=== PATIENT | female | born 1960 | race Caucasian/White ===

== ENCOUNTER → 2018-06-08 | Outpatient (CLI) | payer OTHER | LOC: M.LAB 07:58 | DX: M81.0 Age-related osteoporosis without current pathological fracture (principal) ==

== ENCOUNTER → 2018-08-24 | Outpatient (CLI) | payer OTHER ==
[2018-08-24 08:23] LABS: ABSOLUTE BASOPHILS 0.1 thou/uL (0.0-0.2); ABSOLUTE EOSINOPHILS 0.1 thou/uL (0.0-0.7); ABSOLUTE MONOCYTES 0.3 thou/uL (0.0-1.2); BASOPHILS 1.5 %; EOSINOPHILS 2.4 %; HEMATOCRIT 39.7 % (37.0-47.0); HEMOGLOBIN 12.9 gm/dL (12.0-15.0); MCH 29.1 pg (26.0-34.0); MCHC 32.5 g/dL (28.0-37.0); MCV 89.3 fL (80.0-100.0); MONOCYTES 7.3 %; MPV 8.3 fl. (7.2-11.1); NUCLEATED RBCS 0 /100WBC; PLATELET COUNT* 262 thou/uL (150-400); POLYS 65.8 %; RBC 4.45 mil/uL (4.20-5.00); WBC 4.6 thou/uL (4.0-11.0)
[2018-08-24 08:45] LABS: ALBUMIN 3.7 g/dL (3.4-5.0); ALKALINE PHOSPHATASE 88 U/L (46-116); ANION GAP 12 mmol/L (7-16); BUN 12 mg/dL (7-18); CALCIUM 8.7 mg/dL (8.5-10.1); CHLORIDE 104 mmol/L (98-107); CHOLESTEROL 322 mg/dL (<200); CO2 24 mmol/L (21-32); CREATININE 0.9 mg/dL (0.6-1.3); GLUCOSE 87 mg/dL (70-99); HDL CHOLESTEROL 66 mg/dL (>40); LDL CHOLESTEROL 230 mg/dL (<100); POTASSIUM 3.8 mmol/L (3.5-5.1); SGOT 24 U/L (15-37); SGPT 39 U/L (30-65); SODIUM 140 mmol/L (136-145); TC:HDL 4.9 Ratio (Not establshd); TOTAL BILIRUBIN 0.2 mg/dL (<0.1-1.0); TOTAL PROTEIN 7.1 g/dL (6.4-8.2); TRIGLYCERIDE 130 mg/dL (<150); VLDL 26 mg/dL (<40)
[2018-08-24 08:47] LABS: SERUM ASSESSMENT Clear
== END ==
LOC: M.LAB 08:08
PROVIDERS: Internal Medicine
DX: M79.7 Fibromyalgia (principal); E78.00 Pure hypercholesterolemia, unspecified; E03.9 Hypothyroidism, unspecified; E83.42 Hypomagnesemia

== ENCOUNTER → 2019-01-17 | Outpatient (CLI) | payer OTHER | LOC: M.RAD 09:45 | DX: S22.31XA Fracture of one rib, right side, initial encounter for closed fracture (principal); Z88.8 Allergy status to other drugs, medicaments and biological substances; W19.XXXA Unspecified fall, initial encounter; Y93.89 Activity, other specified; Y92.89 Other specified places as the place of occurrence of the external cause; Y99.8 Other external cause status ==

== ENCOUNTER → 2019-01-27 | Outpatient (CLI) | payer OTHER | LOC: M.RAD 12:46 | DX: S22.31XD Fracture of one rib, right side, subsequent encounter for fracture with routine healing (principal); X58.XXXD Exposure to other specified factors, subsequent encounter ==

== ENCOUNTER → 2019-01-30 | Outpatient (CLI) | payer OTHER | LOC: M.RAD 12:42 | DX: M25.561 Pain in right knee (principal) ==

== ENCOUNTER 2019-02-06 18:00 | Emergency (ER) | payer OTHER ==
[~2019-02-06] VITALS: Ht 154.9 cm; Wt 77.1 kg
[2019-02-06] MEDS ORDERED: TOPAMAX 100 MG100 MG PO (18:08)
[2019-02-06] MEDS ORDERED: SYNTHROID100 MC1 PO (18:09)
[2019-02-06] MEDS ORDERED: SERTRALINE HCL50 MG PO (18:09)
[2019-02-06] MEDS ORDERED: XANAX 0.25 MG0.25 MG PO (18:09)
[2019-02-06] MEDS ORDERED: PRILOSEC 10MG C10 MG PO (18:10)
[2019-02-06] MEDS ORDERED: FLEXERIL PO (18:10)
[2019-02-06 18:27] LABS: HEMATOCRIT 38.3 % (37.0-47.0); HEMOGLOBIN 12.7 gm/dL (12.0-15.0); MCH 28.6 pg (26.0-34.0); MCHC 33.2 g/dL (28.0-37.0); MCV 86.3 fL (80.0-100.0); MPV 8.5 fl. (7.2-11.1); NUCLEATED RBCS 0 /100WBC; PLATELET COUNT* 312 thou/uL (150-400); RBC 4.43 mil/uL (4.20-5.00); RDW-CV 14.9 % (10.5-14.5); WBC 6.9 thou/uL (4.0-11.0)
[2019-02-06 18:39] LABS: APTT 31.7 Seconds (25.0-31.3); PROTIME 9.8 Seconds (9.20-11.50)
[2019-02-06 18:46] LABS: ANION GAP 13 mmol/L (7-16); BUN 14 mg/dL (7-18); CALCIUM 9.5 mg/dL (8.5-10.1); CHLORIDE 103 mmol/L (98-107); CO2 26 mmol/L (21-32); CREATININE 1.1 mg/dL (0.6-1.3); GLUCOSE 82 mg/dL (70-99); POTASSIUM 3.4 mmol/L (3.5-5.1); SODIUM 142 mmol/L (136-145); TROPONIN-I LEVEL <0.06 ng/mL (<0.06)
[2019-02-06 18:49] LABS: ALKALINE PHOSPHATASE 113 U/L (46-116); CK-MB MASS < 0.5 ng/mL (<0.5-3.6); LIPASE 134 U/L (73-393); MAGNESIUM 2.2 mg/dL (1.8-2.4); NT-PRO BRAIN NAT PEPTIDE 37 pg/mL (<300); SGOT 19 U/L (15-37); SGPT 31 U/L (30-65); TOTAL BILIRUBIN 0.1 mg/dL (<0.1-1.0); TOTAL PROTEIN 8.6 g/dL (6.4-8.2)
[2019-02-06 19:00] LABS: ABSOLUTE EOSINOPHILS 0.3 thou/uL (0.0-0.7); ABSOLUTE LYMPHOCYTES 2.5 thou/uL (0.8-5.3); ABSOLUTE MONOCYTES 0.2 thou/uL (0.0-1.2); ABSOLUTE NEUTROPHILS 3.9 thou/uL (1.6-8.1)
[2019-02-06 19:01] LABS: PLATELET ESTIMATE ADEQUATE
[2019-02-06 19:02] LABS: CLUMPED PLTS OCCASIONAL
[2019-02-06] MEDS ORDERED: LYRICA 50 MG50 MG PO (21:05)
[2019-02-06 21:23] VITALS: BP 112/54
--- NOTE | 2019-02-07 10:41 | EKG ---
[place] [address] ELECTROCARDIOGRAM REPORT Name: JOCELINE YOUNG Room: [facility]#: [id number] Admission: 02/06/19 Attend Phys: Discharge: 02/06/19 Date of : 56 Report #: [id number] THIS REPORT FOR: //name// [facility] ED Test Date: 2019-02-06 Test Time: 18:06:12 Pat Name: JOCELINE HANNAH Department: Room: Gender: F Supervisor [employer] Department: [place] : 1960 Requested By: Edgardo Mcdonald Order Number: [id number] MD: Erick Mcdonald Measurements Intervals [place] Rate: 95 P: 49 [place]: 146 QRS: 12 QRSD: 97 T: 0 QT: 344 QTc: 433 Interpretive Statements Sinus rhythm Baseline wander in lead(s) V1,V2 No previous ECG available for comparison Electronically Signed On 02-07-2019 10:40:53 CDT by Erick Mcdonald [email or web address] <ELECTRONICALLY SIGNED> By: Erick Mcdonald MD, [facility] 02/07/19 1040 05 05 Erick Mcdonald MD, FAC /EPI
== END 2019-02-06 21:24 | disposition still patient (30) ==
LOC: M.ERS 18:00
PROVIDERS: Family Medicine
DX: R07.89 Other chest pain (principal); Z90.49 Acquired absence of other specified parts of digestive tract; Z90.710 Acquired absence of both cervix and uterus; Z88.8 Allergy status to other drugs, medicaments and biological substances

== ENCOUNTER → 2019-05-22 | Outpatient (CLI) | payer OTHER ==
[~2019-05-22] MED LIST: FLEXERIL PO; LYRICA 50 MG50 MG PO; PRILOSEC 10MG C10 MG PO; SERTRALINE HCL50 MG PO; SYNTHROID100 MC1 PO; TOPAMAX 100 MG100 MG PO; XANAX 0.25 MG0.25 MG PO
[2019-05-22 08:38] LABS: URINE BILIRUBIN NEGATIVE (Negative); URINE BLOOD 2+ (Negative); URINE CLARITY CLOUDY; URINE COLOR YELLOW; URINE GLUCOSE-RANDOM NEGATIVE (Negative); URINE KETONES NEGATIVE (Negative); URINE LEUKOCYTES 3+ (Negative); URINE NITRITE POSITIVE (Negative); URINE PROTEIN 2+ (Negative); URINE UROBILINOGEN 0.2 E.U./dl (0.2-1.0)
[2019-05-22 09:00] LABS: CASTS None Seen /LPF (None Seen); CRYSTALS None Seen /LPF (None Seen); URINE WBC >25 Many /HPF (0-5)
[2019-05-22 09:02] LABS: BACTERIA >30 Many /HPF (None Seen); SQUAMOUS 0-3 Few /LPF (0-3); URINE RBC 0-2 Rare /HPF (0-2)
== END ==
LOC: M.LAB 08:25
PROVIDERS: Internal Medicine
DX: R39.9 Unspecified symptoms and signs involving the genitourinary system (principal)

== ENCOUNTER → 2019-06-15 | Outpatient (CLI) | payer OTHER | LOC: M.RAD 16:00 | DX: M81.0 Age-related osteoporosis without current pathological fracture (principal); S22.31XD Fracture of one rib, right side, subsequent encounter for fracture with routine healing; Z88.8 Allergy status to other drugs, medicaments and biological substances; Z78.0 Asymptomatic menopausal state; X58.XXXD Exposure to other specified factors, subsequent encounter ==

== ENCOUNTER → 2019-06-22 | Outpatient (CLI) | payer OTHER ==
[2019-06-22 12:08] LABS: ABSOLUTE BASOPHILS 0.1 thou/uL (0.0-0.2); ABSOLUTE EOSINOPHILS 0.1 thou/uL (0.0-0.7); ABSOLUTE LYMPHOCYTES 1.4 thou/uL (0.8-5.3); ABSOLUTE MONOCYTES 0.3 thou/uL (0.0-1.2); ABSOLUTE NEUTROPHILS 2.8 thou/uL (1.6-8.1); BASOPHILS 1.5 %; EOSINOPHILS 2.9 %; HEMOGLOBIN 12.5 gm/dL (12.0-15.0); LYMPHOCYTES 29.3 %; MCH 28.5 pg (26.0-34.0); MCHC 32.9 g/dL (28.0-37.0); MCV 86.6 fL (80.0-100.0); MPV 8.8 fl. (7.2-11.1); NUCLEATED RBCS 0 /100WBC; PLATELET COUNT* 283 thou/uL (150-400); POLYS 59.3 %; RBC 4.38 mil/uL (4.20-5.00); RDW-CV 15.7 % (10.5-14.5); WBC 4.7 thou/uL (4.0-11.0)
[2019-06-22 12:43] LABS: ALKALINE PHOSPHATASE 86 U/L (46-116); ANION GAP 9 mmol/L (7-16); BUN 9 mg/dL (7-18); CALCIUM 9.2 mg/dL (8.5-10.1); CHLORIDE 104 mmol/L (98-107); CHOLESTEROL 320 mg/dL (<200); CO2 26 mmol/L (21-32); CREATININE 0.9 mg/dL (0.6-1.3); GLUCOSE 100 mg/dL (70-99); HDL CHOLESTEROL 56 mg/dL (>40); LDL CHOLESTEROL 214 mg/dL (<100); POTASSIUM 3.9 mmol/L (3.5-5.1); SGOT 15 U/L (15-37); SGPT 25 U/L (30-65); SODIUM 139 mmol/L (136-145); TC:HDL 5.7 Ratio (Not establshd); TOTAL BILIRUBIN 0.2 mg/dL (<0.1-1.0); TOTAL PROTEIN 8.1 g/dL (6.4-8.2); TRIGLYCERIDE 253 mg/dL (<150); VLDL 51 mg/dL (<40)
[2019-06-22 12:44] LABS: SERUM ASSESSMENT Clear
== END ==
LOC: M.LAB 11:45
PROVIDERS: Internal Medicine
DX: Z12.31 Encounter for screening mammogram for malignant neoplasm of breast (principal); M81.0 Age-related osteoporosis without current pathological fracture

== ENCOUNTER → 2020-02-09 | Outpatient (CLI) | payer OTHER ==
[2020-02-09 15:57] LABS: ABSOLUTE BASOPHILS 0.1 thou/uL (0.0-0.2); ABSOLUTE EOSINOPHILS 0.2 thou/uL (0.0-0.7); ABSOLUTE LYMPHOCYTES 1.7 thou/uL (0.8-5.3); ABSOLUTE MONOCYTES 0.5 thou/uL (0.0-1.2); ABSOLUTE NEUTROPHILS 3.6 thou/uL (1.6-8.1); BASOPHILS 1.4 %; EOSINOPHILS 2.5 %; HEMATOCRIT 37.5 % (37.0-47.0); HEMOGLOBIN 12.4 gm/dL (12.0-15.0); LYMPHOCYTES 28.7 %; MCH 28.8 pg (26.0-34.0); MCHC 33.1 g/dL (28.0-37.0); MCV 87.1 fL (80.0-100.0); MPV 8.6 fl. (7.2-11.1); NUCLEATED RBCS 0 /100WBC; PLATELET COUNT* 273 thou/uL (150-400); POLYS 59.4 %; RBC 4.31 mil/uL (4.20-5.00); RDW-CV 15.3 % (10.5-14.5)
[2020-02-09 16:09] LABS: ALBUMIN 3.6 g/dL (3.4-5.0); CALCIUM 8.5 mg/dL (8.5-10.1); POTASSIUM 3.4 mmol/L (3.5-5.1); TOTAL BILIRUBIN 0.2 mg/dL (<0.1-1.0); TOTAL PROTEIN 7.7 g/dL (6.4-8.2)
== END ==
LOC: M.LAB 15:38
PROVIDERS: Internal Medicine
DX: J84.10 Pulmonary fibrosis, unspecified (principal); J45.41 Moderate persistent asthma with (acute) exacerbation

== ENCOUNTER → 2020-02-19 | Outpatient (CLI) | payer OTHER | LOC: M.CT 07:32 | DX: J45.901 Unspecified asthma with (acute) exacerbation (principal); N20.0 Calculus of kidney; Z90.49 Acquired absence of other specified parts of digestive tract ==

== ENCOUNTER → 2020-06-04 | Outpatient (CLI) | payer OTHER ==
[2020-06-04 08:37] LABS: ABSOLUTE BASOPHILS 0.1 thou/uL (0.0-0.2); ABSOLUTE EOSINOPHILS 0.2 thou/uL (0.0-0.7); ABSOLUTE LYMPHOCYTES 1.2 thou/uL (0.8-5.3); ABSOLUTE MONOCYTES 0.4 thou/uL (0.0-1.2); ABSOLUTE NEUTROPHILS 3.7 thou/uL (1.6-8.1); BASOPHILS 1.7 %; EOSINOPHILS 4.1 %; HEMATOCRIT 36.2 % (37.0-47.0); HEMOGLOBIN 12.2 gm/dL (12.0-15.0); LYMPHOCYTES 21.3 %; MCH 29.2 pg (26.0-34.0); MCHC 33.7 g/dL (28.0-37.0); MCV 86.4 fL (80.0-100.0); MONOCYTES 6.7 %; MPV 8.1 fl. (7.2-11.1); NUCLEATED RBCS 0 /100WBC; PLATELET COUNT* 246 thou/uL (150-400); POLYS 66.2 %; RBC 4.19 mil/uL (4.20-5.00); RDW-CV 14.7 % (10.5-14.5); WBC 5.6 thou/uL (4.0-11.0)
[2020-06-04 08:54] LABS: ALBUMIN 3.3 g/dL (3.4-5.0); ALKALINE PHOSPHATASE 81 U/L (46-116); ANION GAP 12 mmol/L (7-16); BUN 9 mg/dL (7-18); CALCIUM 8.7 mg/dL (8.5-10.1); CHLORIDE 106 mmol/L (98-107); CHOLESTEROL 261 mg/dL (<200); CO2 21 mmol/L (21-32); CREATININE 1.1 mg/dL (0.6-1.3); GLUCOSE 141 mg/dL (70-99); HDL CHOLESTEROL 51 mg/dL (>40); LDL CHOLESTEROL 168 mg/dL (<100); POTASSIUM 3.1 mmol/L (3.5-5.1); SGOT 19 U/L (15-37); SGPT 35 U/L (30-65); SODIUM 139 mmol/L (136-145); TC:HDL 5.1 Ratio (Not establshd); TOTAL BILIRUBIN 0.2 mg/dL (<0.1-1.0); TRIGLYCERIDE 212 mg/dL (<150); VLDL 42 mg/dL (<40)
[2020-06-04 08:57] LABS: SERUM ASSESSMENT Clear
[2020-06-06 02:06] LABS: GLYCOHEMOGLOBIN (HGB A1C) 5.4 % (4.8-5.6)
== END ==
LOC: M.LAB 08:16
PROVIDERS: ATTEND Internal Medicine
DX: J45.40 Moderate persistent asthma, uncomplicated (principal); R53.83 Other fatigue; R06.02 Shortness of breath

== ENCOUNTER → 2020-06-11 | Outpatient (CLI) | payer OTHER | LOC: M.LAB 12:17 | PROVIDERS: ATTEND Internal Medicine | DX: R06.02 Shortness of breath (principal) ==

== ENCOUNTER → 2020-06-26 | Outpatient (CLI) | payer OTHER ==
--- NOTE | 2020-06-26 13:11 | 2DMMODE ---
[place] [address] 2 D/M-MODE ECHOCARDIOGRAM Name: JOCELINE YOUNG Room: [facility]#: [id number] Admission: 06/26/20 Attend Phys: Barry Dozier, Discharge: Date of : 56 Date of Service: 06/26/20 1310 Report #: [id number] THIS REPORT FOR: cc: Shirin May MD, Lin W. MD Holkins, John M. MD [facility] ~ APPROVED REPORT Study performed: 06/26/2020 10:50:13 EXAM: Comprehensive 2D, Doppler, and color-flow Echocardiogram Patient Location: Out-Patient BSA: 1.78 HR: 97 bpm BP: 142/88 mmHg Other Information Study Quality: Good Indications Chest Pain 2D Dimensions IVSd: 9.42 (7-11mm) LVOT Diam: 20.07 (18-24mm) LVDd: 32.32 mm PWd: 9.42 (7-11mm) Ascending Ao: 31.44 (22-36mm) LVDs: 15.69 (25-40mm) Aortic Root: 28.50 mm Volumes Left Atrial Volume (Systole) LA ESV Index: 13.20 mL/m2 Aortic Valve AoV Peak Raúl.: 1.30 m/s AO Peak Gr.: 6.71 mmHg LVOT Max P.38 mmHg AO Mean Gr.: 3.73 mmHg LVOT Mean P.73 mmHg LVOT Max V: 0.92 m/s AO V2 VTI: 26.11 cm LVOT Mean V: 0.60 m/s BABS (VTI): 2.40 cm2 LVOT V1 VTI: 19.76 cm Mitral Valve E/A Ratio: 0.71 [place] [address] 2 D/M-MODE ECHOCARDIOGRAM Name: JOCELINE YOUNG JERRELL Room: [facility]#: [id number] Admission: 06/26/20 Attend Phys: Barry Dozier, Discharge: Date of : 56 Date of Service: 06/26/20 1310 Report #: [id number] MV Decel. Time: 198.91 ms MV E Max Raúl.: 0.50 m/s MV PHT: 57.68 ms MVA (PHT): 3.81 cm2 TDI E/Lateral E': 5.56 E/Medial E': 4.55 Medial E' Raúl.: 0.11 m/s Lateral E' Raúl.: 0.09 m/s Pulmonary Valve PV Peak Raúl.: 0.93 m/s PV Peak Gr.: 3.45 mmHg Tricuspid Valve RAP Estimate: 5.00 mmHg TR Peak Gr.: 18.02 mmHg RVSP: 23.02 mmHg PA Pressure: 23.02 mmHg Left Ventricle The left ventricle is normal size. There is normal LV segmental wall motion. There is normal left ventricular wall thickness. Left ventricular systolic function is normal. The left ventricular ejection fraction is within the normal range. LVEF is 60%. Grade I - abnormal relaxation pattern. Right Ventricle The right ventricle is normal size. The right ventricular systolic function is normal. Atria The left atrium size is normal. The right atrium size is normal. Aortic Valve The aortic valve is normal in structure. No aortic regurgitation is present. There is no aortic valvular stenosis. Mitral Valve The mitral valve is normal in structure. There is no mitral valve regurgitation noted. No evidence of mitral valve stenosis. Tricuspid Valve The tricuspid valve is normal in structure. Mild tricuspid regurgitation[place] [address] 2 D/M-MODE ECHOCARDIOGRAM Name: JOCELINE YOUNG JERRELL Room: [facility]#: [id number] Admission: 06/26/20 Attend Phys: Barry Dozier, Discharge: Date of : 56 Date of Service: 06/26/20 1310 Report #: [id number] The pulmonary valve is normal in structure. There is no pulmonic valvular regurgitation. Great Vessels The aortic root is normal in size. IVC is normal in size and collapses >50% with inspiration. Pericardium There is no pericardial effusion. <Conclusion> The left ventricle is normal size. There is normal left ventricular wall thickness. Left ventricular systolic function is normal. The left ventricular ejection fraction is within the normal range. LVEF is 60%. Grade I - abnormal relaxation pattern. The right ventricle is normal size. The left atrium size is normal. The aortic valve is normal in structure. The mitral valve is normal in structure. The tricuspid valve is normal in structure. Mild tricuspid regurgitation. IVC is normal in size and collapses >50% with inspiration. There is no pericardial effusion. There is normal LV segmental wall motion. <ELECTRONICALLY SIGNED> By: Brandin Connors MD, FACC 06/26/201309 09 09 Brandin Connors MD, FACC /INF
--- NOTE | 2020-06-26 17:30 | CARDNUC ---
[place] [address] CARDIAC NUCLEAR IMAGING REPORT Name: HANNAHJOCELINEISIDRO ALLAN Room: [facility]#: [id number] Admission: 06/26/20 Attend Phys: Barry Dozier, Discharge: Date of : 56 Date of Service: 06/26/20 1730 Report #: [id number] THIS REPORT FOR: cc: Shirin May MD, Lin W. MD Liston, Michael J. MD [facility] ~ APPROVED REPORT Study performed: 06/26/2020 09:49:14 Exam: Nuclear Stress Test Indication: Chest pain, Dyspnea Patient Location: Out-Patient Stress Tech: Irma Norman Stress Nurse: Shilpi Chun RN Ht: 5 ft 0 in Wt: 179 lbs BSA: 1.78 m2 BMI: 34.95 Medical History Medical History: Hyperlipidemia, fibromyalgia Medications: colestipol, k-dur, atorvastatin Allergies: imitrex Cardiac Risk Factors: Age, Hyperlipidemia Exercise History: Indeterminate Stress Test Details Stress Test: Pharmacologic stress testing performed using 0.4 mg of regadenoson per 5 mL given IV over 10 seconds. Reason for pharmacologic stress test: physical limitation, asthma. HR Resting HR: 92 bpm Max Heart Rate (APMHR): 158 bpm Max HR Achieved: 110 bpm Target HR (85% APMHR): 134 bpm % of APMHR: 69 Recovery HR: 102 bpm BP Resting BP: 106/57 mmHg Max BP: 98/61 mmHg ECG Resting ECG: Sinus Rhythm Stress ECG: [place] [address] CARDIAC NUCLEAR IMAGING REPORT Name: JOCELINE YOUNG Room: [facility]#: [id number] Admission: 06/26/20 Attend Phys: Barry Dozier, Discharge: Date of : 56 Date of Service: 06/26/20 1730 Report #: [id number] Change: None Arrhythmia: None Recovery ECG: Sinus Rhythm Recovery ST Change: None Recovery Arrhythmia: None Clinical Reason for Termination: Completed protocol The patient tolerated Lexiscan infusion without significant cardiac symptoms. Stress ECG Conclusion The baseline twelve-lead EKG shows sinus rhythm without significant ST segment or T wave abnormality. EKGs obtained during and post Lexiscan infusion show sinus rhythm and sinus tachycardia with no significant ST segment or T wave changes when compared to baseline. There were no stress-induced arrhythmias. NM EXAM: Myocardial Perfusion REST/STRESS Imaging Protocol: Rest Tc-99m/Stress Tc-99m 1 day Resting Data Rest SPECT myocardial perfusion imaging was performed in supine position 30 minutes following the intravenous injection of 11.3 mCi of Tc-99m Sestamibi. Time of rest injection: 08:00 Date: 06/26/2020 The images were gated to evaluate regional wall motion and calculate left ventricular ejection fraction. Administration Route: IV Administration Site: Right Wrist Pharmacologic Stress Pharmacologic stress test was performed by injecting Regadenoson 0.4 mg IV push followed by the intravenous injection of 32.0 mCi of Tc-99m Sestamibi. Time of stress injection: 09:50 Date: 06/26/2020 Administration Route: IV Administration Site: Right Wrist Heart Rate at time of stress injection: 110 bpm. Gated Stress SPECT was performed 40 minutes after stress injection. The images were gated to evaluate regional wall motion and calculate left ventricular ejection fraction. Prone imaging was performed[place] [address] CARDIAC NUCLEAR IMAGING REPORT Name: JOCELINE YOUNG Room: [facility]#: [id number] Admission: 06/26/20 Attend Phys: Barry Dozier, Discharge: Date of : 56 Date of Service: 06/26/20 1730 Report #: [id number] Study: Good Artifact: No artifact Study Data At rest, the left ventricular ejection fraction was 82%.. Post stress, the left ventricular ejection was 72%.. TID = 1.22. Perfusion Perfusion images obtained at rest and post Lexiscan stress showed uniform uptake of the radioisotope throughout the myocardium. There were no defects to suggest infarct or ischemia. Wall Motion Normal left ventricular wall motion. Nuclear Conclusion ECG Findings: negative for ischemia Clinical Findings: negative for ischemia Nuclear Findings: negative for ischemia Exercise Capacity: not assessed Left Ventricular Function: normal Risk Study: low Myocardial perfusion images show no defect to suggest infarct or ischemia. Left ventricular systolic function appears normal on gated studies. This is a low risk study. <Conclusion> The baseline twelve-lead EKG shows sinus rhythm without significant ST segment or T wave abnormality. EKGs obtained during and post Lexiscan infusion show sinus rhythm and sinus tachycardia with no significant ST segment or T wave changes when compared to baseline. There were no stress-induced arrhythmias. <ELECTRONICALLY SIGNED> By: Barry Dozier MD, FACC 06/26/20 173 173 173 Barry Dozier MD, FACC /INF
== END ==
LOC: M.CRD 06-24 07:22 → M.NUC 07:28 → M.CRD 07-01 09:00
PROVIDERS: ATTEND Internal Medicine Cardiovascular Disease
DX: I07.1 Rheumatic tricuspid insufficiency (principal)

== ENCOUNTER → 2020-08-19 | Outpatient (CLI) | payer OTHER | LOC: M.RAD 12:29 | PROVIDERS: ATTEND Internal Medicine | DX: S22.32XA Fracture of one rib, left side, initial encounter for closed fracture (principal); M71.21 Synovial cyst of popliteal space [Baker], right knee; X58.XXXA Exposure to other specified factors, initial encounter; Y93.89 Activity, other specified; Y92.89 Other specified places as the place of occurrence of the external cause; Y99.8 Other external cause status ==

== ENCOUNTER → 2020-09-26 | Outpatient (CLI) | payer OTHER | LOC: M.LAB 16:53 | PROVIDERS: ATTEND Internal Medicine Gastroenterology | DX: Z01.812 Encounter for preprocedural laboratory examination (principal); Z20.828 Contact with and (suspected) exposure to other viral communicable diseases; K21.9 Gastro-esophageal reflux disease without esophagitis ==

== ENCOUNTER → 2020-10-24 | Outpatient (CLI) | payer OTHER | LOC: M.NUC 11:22 | PROVIDERS: ATTEND Internal Medicine Gastroenterology | DX: K21.9 Gastro-esophageal reflux disease without esophagitis (principal); R68.81 Early satiety ==

== ENCOUNTER → 2020-11-22 | Outpatient (CLI) | payer OTHER | LOC: M.MRI 07:30 | PROVIDERS: ATTEND Internal Medicine | DX: R60.0 Localized edema (principal); M25.561 Pain in right knee ==

== ENCOUNTER → 2020-12-03 | Outpatient (CLI) | payer OTHER | LOC: M.RAD 12:54 | PROVIDERS: ATTEND Orthopaedic Surgery | DX: M25.561 Pain in right knee (principal) ==

== ENCOUNTER → 2021-01-17 | Outpatient (CLI) | payer OTHER ==
[2021-01-17 09:12] LABS: CALCIUM 8.7 mg/dL (8.5-10.1); CREATININE 1.1 mg/dL (0.6-1.3); MAGNESIUM 2.5 mg/dL (1.8-2.4); POTASSIUM 3.9 mmol/L (3.5-5.1)
== END ==
LOC: M.LAB 08:46
PROVIDERS: ATTEND Internal Medicine
DX: E87.6 Hypokalemia (principal)

== ENCOUNTER → 2021-02-13 | Outpatient (CLI) | payer OTHER ==
[2021-02-13 12:37] LABS: HEMATOCRIT 37.2 % (37.0-47.0); HEMOGLOBIN 12.2 gm/dL (12.0-15.0); MCH 28.2 pg (26.0-34.0); MCHC 32.9 g/dL (28.0-37.0); MCV 85.8 fL (80.0-100.0); MPV 9.4 fl. (7.2-11.1); NUCLEATED RBCS 0 /100WBC; PLATELET COUNT* 269 thou/uL (150-400); RBC 4.33 mil/uL (4.20-5.00); RDW-CV 15.2 % (10.5-14.5); WBC 5.7 thou/uL (4.0-11.0)
[2021-02-13 13:10] LABS: ABSOLUTE BASOPHILS 0.1 thou/uL (0.0-0.2); ABSOLUTE EOSINOPHILS 0.3 thou/uL (0.0-0.7); ABSOLUTE LYMPHOCYTES 1.9 thou/uL (0.8-5.3); ABSOLUTE MONOCYTES 0.2 thou/uL (0.0-1.2); ABSOLUTE NEUTROPHILS 3.1 thou/uL (1.6-8.1); PLATELET ESTIMATE ADEQUATE
[2021-02-13 13:11] LABS: LARGE PLATELETS OCCASIONAL
[2021-02-13 14:05] LABS: ESR (SEDRATE) 25 mm/hr (0-30)
== END | disposition home or self-care (01) ==
LOC: M.LAB 12:22
PROVIDERS: ATTEND Internal Medicine
DX: F41.1 Generalized anxiety disorder (principal); R63.5 Abnormal weight gain; L65.9 Nonscarring hair loss, unspecified

== ENCOUNTER → 2021-03-11 | Outpatient (CLI) | payer OTHER ==
[2021-03-12 02:06] LABS: GLYCOHEMOGLOBIN (HGB A1C) 5.6 % (4.8-5.6)
== END ==
LOC: M.LAB 12:43
PROVIDERS: ATTEND Internal Medicine
DX: H53.8 Other visual disturbances (principal)

== ENCOUNTER 2021-03-20 13:28 | Emergency (ER) | payer OTHER ==
[~2021-03-20] VITALS: Ht 157.5 cm; Wt 81.7 kg
[2021-03-20] MEDS ORDERED: PROTONIX40 M3 PO (13:53)
[2021-03-20] MEDS ORDERED: KLOR-CON M2020 MEQ PO (13:53)
[2021-03-20] MEDS ORDERED: CRESTOR5 MG PO (13:54)
[2021-03-20 14:32] LABS: HEMATOCRIT 34.6 % (37.0-47.0); HEMOGLOBIN 11.8 gm/dL (12.0-15.0); MCH 29.3 pg (26.0-34.0); MCHC 34.2 g/dL (28.0-37.0); MCV 85.8 fL (80.0-100.0); MPV 9.1 fl. (7.2-11.1); NUCLEATED RBCS 0 /100WBC; PLATELET COUNT* 244 thou/uL (150-400); RBC 4.03 mil/uL (4.20-5.00); RDW-CV 14.8 % (10.5-14.5); WBC 7.6 thou/uL (4.0-11.0)
[2021-03-20 14:40] LABS: CALCIUM 8.3 mg/dL (8.5-10.1); POTASSIUM 3.8 mmol/L (3.5-5.1)
[2021-03-20 14:51] LABS: ALBUMIN 3.8 g/dL (3.4-5.0); TOTAL BILIRUBIN 0.2 mg/dL (<0.1-1.0); TOTAL PROTEIN 7.3 g/dL (6.4-8.2)
[2021-03-20 15:34] LABS: ABSOLUTE EOSINOPHILS 0.2 thou/uL (0.0-0.7); ABSOLUTE LYMPHOCYTES 2.8 thou/uL (0.8-5.3); ABSOLUTE MONOCYTES 0.3 thou/uL (0.0-1.2); ABSOLUTE NEUTROPHILS 4.3 thou/uL (1.6-8.1); LARGE PLATELETS OCCASIONAL; PLATELET ESTIMATE ADEQUATE
[2021-03-20 18:09] VITALS: BP 113/55
--- NOTE | 2021-03-21 16:36 | EKG ---
[place] [address] ELECTROCARDIOGRAM REPORT Name: JOCELINE YOUNG Room: [facility]#: [id number] Admission: 03/20/21 Attend Phys: Discharge: 03/20/21 Date of : 56 Date of Service: 03/20/21 1439 Report #: [id number] THIS REPORT FOR: //name// [facility] ED Test Date: 2021-03-20 Test Time: 14:39:23 Pat Name: JOCELINE YOUNG Department: Room: Gender: F [employer]: : 1960 Requested By: Magda Boykin Order Number: [id number] MD: Brandin Connors Measurements Intervals [place] Rate: 87 P: 29 [place]: 148 QRS: 7 QRSD: 99 T: 8 QT: 408 QTc: 491 Interpretive Statements Sinus rhythm Borderline prolonged QT interval Compared to ECG 02/06/2019 18:06:12 No significant changes Electronically Signed On 03-21-2021 16:36:13 CDT by Brandin Connors [email or web address] <ELECTRONICALLY SIGNED> By: Brandin Connors MD, [facility] 03/21/21 1636 1439 1439 Brandin Connors MD, [facility] /EPI
== END 2021-03-20 18:13 | disposition home or self-care (01) ==
LOC: M.ERS 13:28
PROVIDERS: Physician Assistant
DX: R22.43 Localized swelling, mass and lump, lower limb, bilateral (principal); R06.02 Shortness of breath; Z88.8 Allergy status to other drugs, medicaments and biological substances; Z90.710 Acquired absence of both cervix and uterus

== ENCOUNTER 2021-05-06 15:32 | Inpatient (IN) | payer OTHER ==
[~2021-05-06] VITALS: Ht 157.5 cm; Wt 83.9 kg
--- NOTE | ~2021-05-06 | CON ---
[address] [address] CONSULTATION Name: HANNAHJOCELINE JERRELL Room: [place] [address] ADM IN M.R.#: [id number] Admission: 05/06/21 Attend Phys: El Martinez Discharge: Date of : 56 Report #: [id number] THIS REPORT FOR: cc: Shirin May MD, Lin W. MD Khosla, Parveen K. MD ~ DATE OF CONSULTATION: 05/06/2021 HISTORY OF PRESENT ILLNESS: A 61-year-old female patient who was evaluated by me for the possibility of TIA. The history is summarized in Emergency Room physician notes as well as H and P and will not be repeated here. She had some speech difficulty. She also had some right-sided symptoms. She says she is better. Some of the symptoms are going on since morning, some symptoms may be going on even before that, but she feels better this evening than she did this morning. She did undergo a CT angio of the head and neck and CT, which was unremarkable. REVIEW OF SYSTEMS: Pretty extensive in this patient. She said she has a bipolar disorder. She has depression. She takes Topamax and Zoloft for that. She has a fibromyalgia for which she was taking Flexeril and that was changed to Lyrica. She is being managed by her primary care in that regard. She does have a history of migraine, but she says those are under control. She has a history of hysterectomy, lot of other problems, hyperlipidemia and asthma that was a relevant 14-point review of system. PAST MEDICAL HISTORY: Negative for what looks like stroke-like symptoms. FAMILY HISTORY: Negative for stroke, but is positive for diabetes. SOCIAL HISTORY: She does not smoke. PHYSICAL EXAMINATION: NEUROLOGIC: The patient's examination indicate that the patient is alert, responsive, able to follow simple and complex commands. She does not appear to have any speech difficulty on my examination. Her cranial nerve examination was unremarkable. Visual singer were intact. She moved all 4 extremities. She did move the right side slowly than she did the left side. Her sensation appeared to be present. I did not make her walk. There does not appear to be any respiratory difficulty. VITAL SIGNS: Blood pressure is 113/63, respirations 12, pulse is 90. LABORATORY DATA: Indicated a white count of 5.5. CT angio was reviewed and summarized above. IMPRESSION AND PLAN: Pretty difficult to perform in [place] [address] CONSULTATION Name: JOCELINE YOUNG JERRELL Room: [address] IN [facility]#: [id number] Admission: 05/06/21 Attend Phys: El Martinez Discharge: Date of : 56 Report #: [id number] thing we should exclude is the possibility of stroke by doing an MRI. We will do that tomorrow. She already got an aspirin in the Emergency Room. If MRI confirms stroke, then we will treat accordingly. Otherwise, other possibility like hemiplegic migraine, stress, etc., need to be considered. Thank you very much for this referral. By: 1945 [id number] Meyer MD /nt
[~2021-05-06 15:32] MED LIST changes: +CRESTOR5 MG PO; +KLOR-CON M2020 MEQ PO; +PROTONIX40 M3 PO; -SERTRALINE HCL50 MG PO; +ZOLOFT 50 MG TA50 MG PO
[2021-05-06 15:37] VITALS: BP 139/81
[2021-05-06 16:08] LABS: EOSINOPHILS 6.4 %; HEMATOCRIT 35.4 % (37.0-47.0); HEMOGLOBIN 11.8 gm/dL (12.0-15.0); LYMPHOCYTES 34.1 %; MCH 28.5 pg (26.0-34.0); MCHC 33.2 g/dL (28.0-37.0); MCV 85.7 fL (80.0-100.0); MONOCYTES 8.1 %; MPV 9.4 fl. (7.2-11.1); PLATELET COUNT* 233 thou/uL (150-400); RBC 4.13 mil/uL (4.20-5.00); RDW-CV 15.3 % (10.5-14.5); WBC 5.5 thou/uL (4.0-11.0)
[2021-05-06 16:09] LABS: ABSOLUTE BASOPHILS 0.1 thou/uL (0.0-0.2); ABSOLUTE EOSINOPHILS 0.4 thou/uL (0.0-0.7); ABSOLUTE LYMPHOCYTES 1.9 thou/uL (0.8-5.3); ABSOLUTE MONOCYTES 0.4 thou/uL (0.0-1.2); ABSOLUTE NEUTROPHILS 2.7 thou/uL (1.6-8.1); BASOPHILS 1.4 %; NUCLEATED RBCS 0 /100WBC
[2021-05-06 16:22] LABS: CALCIUM 8.7 mg/dL (8.5-10.1); CREATININE 1.1 mg/dL (0.6-1.3); POTASSIUM 3.8 mmol/L (3.5-5.1)
[2021-05-06 16:26] LABS: ALBUMIN 3.8 g/dL (3.4-5.0); TOTAL BILIRUBIN 0.2 mg/dL (<0.1-1.0); TOTAL PROTEIN 7.9 g/dL (6.4-8.2)
--- NOTE | 2021-05-06 17:01 | EKG ---
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
[2021-05-06 21:03] VITALS: BP 108/58
[2021-05-07] VITALS (7 sets, daily range): BP systolic 103–129; BP diastolic 51–74
[2021-05-07 08:45] LABS: CHOLESTEROL 209 mg/dL (<200); HDL CHOLESTEROL 50 mg/dL (>40); LDL CHOLESTEROL 110 mg/dL (<100); TC:HDL 4.2 Ratio (Not establshd); TRIGLYCERIDE 248 mg/dL (<150); VLDL 50 mg/dL (<40)
[2021-05-07 08:47] LABS: SERUM ASSESSMENT Clear
--- NOTE | 2021-05-07 15:56 | 2DMMODE ---
[place] [address] 2 D/M-MODE ECHOCARDIOGRAM Name: JOCELINE YOUNG Room: [address] ADM IN .R.#: [id number] Admission: 05/06/21 Attend Phys: Olu Villatoro Discharge: Date of : 56 Date of Service: 05/07/21 1555 Report #: [id number] THIS REPORT FOR: cc: Shirin May MD, Lin W. MD Holkins,Brandin Lora MD [facility] ~ APPROVED REPORT Study performed: 05/07/2021 14:06:34 EXAM: Comprehensive 2D, Doppler, and color-flow Echocardiogram Patient Location: In-Patient Room #: [facility] Status: routine BSA: 1.85 HR: 93 bpm BP: 118/57 mmHg Rhythm: NSR Other Information Study Quality: Good Indications Dyspnea 2D Dimensions IVSd: 10.58 (7-11mm) LVOT Diam: 19.37 (18-24mm) LVDd: 45.94 mm PWd: 10.88 (7-11mm) Ascending Ao: 34.67 (22-36mm) LVDs: 27.39 (25-40mm) Aortic Root: 31.83 mm Volumes Left Atrial Volume (Systole) LA ESV Index: 21.60 mL/m2 Aortic Valve AoV Peak Raúl.: 1.59 m/s AO Peak Gr.: 10.10 mmHg LVOT Max P.01 mmHg AO Mean Gr.: 5.38 mmHg LVOT Mean P.99 mmHg LVOT Max V: 1.23 m/s AO V2 VTI: 29.47 cm LVOT Mean V: 0.80 m/s BABS (VTI): 2.53 cm2 LVOT V1 VTI: 25.29 [place] [address] 2 D/M-MODE ECHOCARDIOGRAM Name: JOCELINE YOUNG Room: [address] IN ..#: [id number] Admission: 05/06/21 Attend Phys: Olu Villatoro Discharge: Date of : 56 Date of Service: 05/07/21 1555 Report #: [id number] Mitral Valve E/A Ratio: 0.80 MV Decel. Time: 130.53 ms MV E Max Raúl.: 0.93 m/s MV PHT: 37.85 ms MVA (PHT): 5.81 cm2 TDI E/Lateral E': 7.15 Lateral E' Raúl.: 0.13 m/s Pulmonary Valve PV Peak Raúl.: 1.20 m/s PV Peak Gr.: 5.74 mmHg Tricuspid Valve RAP Estimate: 5.00 mmHg TR Peak Gr.: 28.14 mmHg RVSP: 33.00 mmHg PA Pressure: 33.00 mmHg Left Ventricle The left ventricle is normal size. There is normal LV segmental wall motion. There is normal left ventricular wall thickness. Left ventricular systolic function is normal. The left ventricular ejection fraction is within the normal range. LVEF is 60-65%. Grade I - abnormal relaxation pattern. Right Ventricle The right ventricle is normal size. The right ventricular systolic function is normal. Atria The left atrium size is normal. The right atrium size is normal. Aortic Valve The aortic valve is normal in structure. No aortic regurgitation is present. There is no aortic valvular stenosis. Mitral Valve The mitral valve is normal in structure. Trace mitral regurgitation. No evidence of mitral valve stenosis. Tricuspid Valve The tricuspid valve is normal in structure. Mild tricuspid regurgitation. [place] [address] 2 D/M-MODE ECHOCARDIOGRAM Name: HANNAHJOCELINEISIDRO ALLAN Room: [address] IN [facility]#: [id number] Admission: 05/06/21 Attend Phys: Olu Villatoro Discharge: Date of : 56 Date of Service: 05/07/21 1555 Report #: [id number] Pulmonic Valve The pulmonary valve is normal in structure. There is no pulmonic valvular regurgitation. Great Vessels The aortic root is normal in size. IVC is normal in size and collapses >50% with inspiration. Pericardium There is no pericardial effusion. <Conclusion> The left ventricle is normal size. There is normal left ventricular wall thickness. Left ventricular systolic function is normal. The left ventricular ejection fraction is within the normal range. LVEF is 60-65%. Grade I - abnormal relaxation pattern. The right ventricle is normal size. The left atrium size is normal. The aortic valve is normal in structure. The mitral valve is normal in structure. The tricuspid valve is normal in structure. Mild tricuspid regurgitation. Mild pulmonary hypertension. IVC is normal in size and collapses >50% with inspiration. There is no pericardial effusion. There is normal LV segmental wall motion. <ELECTRONICALLY SIGNED> By: Brandin Connors MD, FACC 05/07/21 1555 1555 1555 Brandin Connors MD, FACC /INF
[2021-05-08] VITALS: BP 111/65
[2021-05-08 04:00] VITALS: BP 113/63
[2021-05-08 08:00] VITALS: BP 113/63
[2021-05-08] MEDS ORDERED: ASA81BEC PO (11:48)
[2021-05-08 11:52] VITALS: BP 113/63
[2021-05-08 12:02] VITALS: BP 117/67
== END 2021-05-08 12:49 | disposition home or self-care (01) | DRG 69 ==
LOC: M.ERS 15:32 → M.TBA-ER 17:07 → M.2W 17:07
PROVIDERS: Family Medicine; Registered Nurse; ADMIT Internal Medicine; ATTEND Internal Medicine
DX: G45.9 Transient cerebral ischemic attack, unspecified (principal); E78.5 Hyperlipidemia, unspecified; F31.9 Bipolar disorder, unspecified; J45.909 Unspecified asthma, uncomplicated; M79.7 Fibromyalgia; F41.9 Anxiety disorder, unspecified; D64.9 Anemia, unspecified; Z20.822 Contact with and (suspected) exposure to COVID-19; D32.0 Benign neoplasm of cerebral meninges; D63.8 Anemia in other chronic diseases classified elsewhere; Z90.710 Acquired absence of both cervix and uterus; Z90.49 Acquired absence of other specified parts of digestive tract; Z79.899 Other long term (current) drug therapy; Z88.8 Allergy status to other drugs, medicaments and biological substances; Z82.49 Family history of ischemic heart disease and other diseases of the circulatory system